=== PATIENT | male | born 1965 | race American Indian/Alaskan Native ===

== ENCOUNTER 2018-03-12 09:41 | Observation (INO) | payer BC ==
[~2018-03-12] VITALS: Ht 167.6 cm; Wt 83.5 kg
[~2018-03-12 09:41] MED LIST: BENAML20/5; BENAML20/5 PO; DICL.1SO OD; ESCI10; FAMO20 PO; HYDACE10B PO; IBUP800 PO; Lotrel 10-40 M1 EACH PO; METF500; METF500 PO; METO100ER; METO25ER; NORVASC; Nitrostat0.4 MG SL; Norco 5-325 Ta1 EACH PO; OFLO.3OPSO OP; TRAM50 PO; TRIHYD5075 PO
[2018-03-12 10:20] LABS: BASOPHILS ABSOLUTE AUTO 0.08 K/mm3 (0.00-0.23); BASOPHILS PERCENT AUTO 1 % (0-2); EOSINOPHILS ABSOLUTE AUTO 0.18 K/mm3 (0.00-0.68); EOSINOPHILS PERCENT AUTO 1 % (0-6); Hematocrit 53.4 % (37.0-53.0); Hemoglobin 17.5 g/dL (13.5-17.5); IMMATURE GRAN ABSOLUTE AUTO 0.05 K/mm3 (0.00-0.10); IMMATURE GRAN PERCENT AUTO 0 % (0-1); LYMPHOCYTES ABSOLUTE AUTO 2.13 K/mm3 (0.84-5.20); LYMPHOCYTES PERCENT AUTO 14 % (21-46); MONOCYTES ABSOLUTE AUTO 0.97 K/mm3 (0.16-1.47); MONOCYTES PERCENT AUTO 6 % (4-13); Mean Corpuscular HGB 29.9 pg (26.0-34.0); Mean Corpuscular HGB Conc 32.8 g/dL (31.5-36.5); Mean Corpuscular Volume 91 fL (80-100); Mean Platelet Volume 9.3 fL (9.1-12.4); NEUTROPHILS ABSOLUTE AUTO 12.42 K/mm3 (1.96-9.15); NEUTROPHILS PERCENT AUTO 79 % (41-73); Platelet Count 343 K/mm3 (150-400); RDW Coefficient Variation 15.6 % (11.7-14.2); RDW Standard Deviation 52.3 fL (35.1-46.3); Red Blood Cell Count 5.86 M/mm3 (4.30-5.90); White Blood Cell Count 15.83 K/mm3 (4.00-11.30)
[2018-03-12 10:38] LABS: Alanine Aminotransfer (ALT/SGP 41 U/L (12-78); Albumin/Globulin Ratio 0.9 (0.8-1.8); Alk Phos 73 U/L (50-136); Anion Gap 8 mmol/L (6-16); Aspartate Aminotrans (AST/SGOT 27 U/L (12-37); Bilirubin, Total 0.4 mg/dL (0.1-1.0); Blood Urea Nitrogen 23 mg/dL (8-24); Bun/Creatinine Ratio 21.7 (12.0-20.0); CO2, Blood 30 mmol/L (21-32); Calcium, Blood 9.7 mg/dL (8.5-10.1); Chloride, Blood 101 mmol/L (98-108); Creatinine, Blood 1.06 mg/dL (0.60-1.20); Globulin, Blood 4.6 g/dL (2.2-4.0); Glomerular Filtration Rate >60 (60-); Glucose, Blood 167 mg/dL (70-99); Potassium, Blood 3.8 mmol/L (3.5-5.5); Sodium, Blood 139 mmol/L (136-145); Total Protein, Blood 8.6 g/dL (6.4-8.2)
[2018-03-13 05:14] LABS: BASOPHILS PERCENT AUTO 1 % (0-2); EOSINOPHILS ABSOLUTE AUTO 0.53 K/mm3 (0.00-0.68); EOSINOPHILS PERCENT AUTO 3 % (0-6); Hematocrit 48.4 % (37.0-53.0); Hemoglobin 15.5 g/dL (13.5-17.5); IMMATURE GRAN ABSOLUTE AUTO 0.07 K/mm3 (0.00-0.10); IMMATURE GRAN PERCENT AUTO 0 % (0-1); LYMPHOCYTES ABSOLUTE AUTO 3.24 K/mm3 (0.84-5.20); LYMPHOCYTES PERCENT AUTO 18 % (21-46); MONOCYTES ABSOLUTE AUTO 1.91 K/mm3 (0.16-1.47); MONOCYTES PERCENT AUTO 11 % (4-13); Mean Corpuscular HGB 29.4 pg (26.0-34.0); Mean Corpuscular Volume 92 fL (80-100); NEUTROPHILS ABSOLUTE AUTO 12.28 K/mm3 (1.96-9.15); NEUTROPHILS PERCENT AUTO 68 % (41-73); Platelet Count 299 K/mm3 (150-400); RDW Coefficient Variation 16.1 % (11.7-14.2); RDW Standard Deviation 53.9 fL (35.1-46.3); Red Blood Cell Count 5.28 M/mm3 (4.30-5.90); White Blood Cell Count 18.13 K/mm3 (4.00-11.30)
[2018-03-13 05:36] LABS: Alanine Aminotransfer (ALT/SGP 32 U/L (12-78); Albumin, Blood 3.2 g/dL (3.4-5.0); Albumin/Globulin Ratio 0.8 (0.8-1.8); Alk Phos 60 U/L (50-136); Anion Gap 8 mmol/L (6-16); Aspartate Aminotrans (AST/SGOT 21 U/L (12-37); Bilirubin, Total 0.6 mg/dL (0.1-1.0); Blood Urea Nitrogen 16 mg/dL (8-24); Bun/Creatinine Ratio 17.2 (12.0-20.0); CO2, Blood 24 mmol/L (21-32); Calcium, Blood 8.2 mg/dL (8.5-10.1); Chloride, Blood 111 mmol/L (98-108); Creatinine, Blood 0.93 mg/dL (0.60-1.20); Globulin, Blood 3.8 g/dL (2.2-4.0); Glomerular Filtration Rate >60 (60-); Glucose, Blood 105 mg/dL (70-99); Sodium, Blood 143 mmol/L (136-145)
== END 2018-03-13 15:35 | disposition home or self-care (01) ==
LOC: ER 09:41 → MEDS 09:42 → ER 13:30 → MEDS 13:30
PROVIDERS: Emergency Medicine; Hospitalist
DX: K85.90 Acute pancreatitis without necrosis or infection, unspecified (principal); I10 Essential (primary) hypertension; E11.9 Type 2 diabetes mellitus without complications; F17.210 Nicotine dependence, cigarettes, uncomplicated; D72.829 Elevated white blood cell count, unspecified; E78.5 Hyperlipidemia, unspecified; R11.2 Nausea with vomiting, unspecified; Z79.84 Long term (current) use of oral hypoglycemic drugs
CPT/HCPCS: 36415; 74181; 76705; 80053; 82947; 83690; 85025; 96361; 96374; 96375; 96376; 99285; C9113; G0378; J1170; J2405; J3010; J7030

== ENCOUNTER → 2018-11-24 | Outpatient (CLI) | payer BC ==
[2018-11-24 13:51] LABS: Triiodothyronine, Free 3.06 pg/mL (2.18-3.98)
== END | disposition home or self-care (01) ==
LOC: LAB 11:37 → LAB SHORT 11:37
PROVIDERS: Hospitalist
DX: Z12.5 Encounter for screening for malignant neoplasm of prostate (principal); R68.89 Other general symptoms and signs
CPT/HCPCS: 84439; 84481; G0103

== ENCOUNTER 2019-03-23 01:41 | Inpatient (IN) | payer BC ==
[~2019-03-23] VITALS: Ht 167.6 cm; Wt 78.2 kg
[2019-03-23 02:04] LABS: BASOPHILS ABSOLUTE AUTO 0.12 K/mm3 (0.00-0.23); BASOPHILS PERCENT AUTO 1 % (0-2); EOSINOPHILS ABSOLUTE AUTO 0.54 K/mm3 (0.00-0.68); EOSINOPHILS PERCENT AUTO 3 % (0-6); Hematocrit 42.3 % (37.0-53.0); Hemoglobin 13.3 g/dL (13.5-17.5); IMMATURE GRAN ABSOLUTE AUTO 0.11 K/mm3 (0.00-0.10); IMMATURE GRAN PERCENT AUTO 1 % (0-1); LYMPHOCYTES ABSOLUTE AUTO 3.27 K/mm3 (0.84-5.20); LYMPHOCYTES PERCENT AUTO 15 % (21-46); MONOCYTES ABSOLUTE AUTO 1.42 K/mm3 (0.16-1.47); MONOCYTES PERCENT AUTO 7 % (4-13); Mean Corpuscular HGB 29.2 pg (26.0-34.0); Mean Corpuscular HGB Conc 31.4 g/dL (31.5-36.5); Mean Corpuscular Volume 93 fL (80-100); Mean Platelet Volume 9.3 fL (9.1-12.4); NEUTROPHILS ABSOLUTE AUTO 15.92 K/mm3 (1.96-9.15); NEUTROPHILS PERCENT AUTO 75 % (41-73); Platelet Count 348 K/mm3 (150-400); RDW Coefficient Variation 15.7 % (11.7-14.2); RDW Standard Deviation 53.6 fL (35.1-46.3); Red Blood Cell Count 4.55 M/mm3 (4.30-5.90); White Blood Cell Count 21.38 K/mm3 (4.00-11.30)
[2019-03-23 02:18] LABS: International Normalized Ratio 1.08; Prothrombin Time Results 11.4 Sec (9.7-11.5)
[2019-03-23 02:24] LABS: Alanine Aminotransfer (ALT/SGP 24 U/L (12-78); Albumin, Blood 3.7 g/dL (3.4-5.0); Albumin/Globulin Ratio 0.9 (0.8-1.8); Alk Phos 74 U/L (50-136); Anion Gap 6 mmol/L (6-16); Aspartate Aminotrans (AST/SGOT 23 U/L (12-37); Bilirubin, Total 0.3 mg/dL (0.1-1.0); Blood Urea Nitrogen 12 mg/dL (8-24); Bun/Creatinine Ratio 10.3 (12.0-20.0); CO2, Blood 27 mmol/L (21-32); Calcium, Blood 8.2 mg/dL (8.5-10.1); Chloride, Blood 104 mmol/L (98-108); Creatinine, Blood 1.17 mg/dL (0.60-1.20); Globulin, Blood 4.1 g/dL (2.2-4.0); Glomerular Filtration Rate >60 (60-); Glucose, Blood 163 mg/dL (70-99); Potassium, Blood 4.4 mmol/L (3.5-5.5); Sodium, Blood 137 mmol/L (136-145); Total Protein, Blood 7.8 g/dL (6.4-8.2); Troponin I 0.252 ng/mL (0.000-0.040)
--- NOTE | 2019-03-23 03:45 | NUR ---
ADMIT PT ARRIVED TO ICU 12 AT 0325 FROM SPORTS ANNOUNCER. PT IS DROWSEY, BUT AROUSES TO VERBAL STIMULI. PT IS ALERT AND ORIENTED. PT DENIES CHEST PAIN OR DISCOMFORT AT THIS TIME. PT ON 2L O2 NC. VITAL SIGNS STABLE. PT WITH RIGHT FEMORAL ACCESS SITE WITH DRESSING C/D/I, NO BLEEDING OR HEMATOMA, SITE IS SOFT. WILL CONTINUE TO MONITOR.
--- NOTE | 2019-03-23 05:59 | NUR ---
GROIN SITE PT NOTED TO HAVE SMALL AMOUNT OF OOZING FROM RIGHT FEMORAL ACCESS SITE. SITE IS SOFT, NO HEMATOMA PRESENT. PRESSURE HELD FOR 5 MINS. 4X4 GAUZE PACKED BELOW SITE. OOZING HAS SUBSIDED AT THIS TIME. PT CONTINUES TO DENY PAIN OR DISCOMFORT. VSS. WILL CONTINUE TO MONITOR.
[2019-03-23 09:22] LABS: U Cannabinoids Screen DETECTED; U Opiates Screen DETECTED
[2019-03-23 09:23] LABS: U Amphetamine Screen Not Detected; U Barbituate Screen Not Detected; U Benzodiazapine Screen Not Detected; U Buprenorphine Screen Not Detected; U Cocaine Screen Not Detected; U Methadone Screen Not Detected; U Methamphetamine Screen Not Detected; U Oxycodone Screen Not Detected; U Phencyclidine Screen Not Detected; U Propoxyphene Screen Not Detected
[2019-03-23 10:41] LABS: BASOPHILS ABSOLUTE AUTO 0.06 K/mm3 (0.00-0.23); BASOPHILS PERCENT AUTO 0 % (0-2); EOSINOPHILS ABSOLUTE AUTO 0.22 K/mm3 (0.00-0.68); EOSINOPHILS PERCENT AUTO 1 % (0-6); Hematocrit 40.9 % (37.0-53.0); Hemoglobin 12.9 g/dL (13.5-17.5); IMMATURE GRAN ABSOLUTE AUTO 0.04 K/mm3 (0.00-0.10); IMMATURE GRAN PERCENT AUTO 0 % (0-1); LYMPHOCYTES ABSOLUTE AUTO 3.27 K/mm3 (0.84-5.20); LYMPHOCYTES PERCENT AUTO 19 % (21-46); MONOCYTES ABSOLUTE AUTO 1.58 K/mm3 (0.16-1.47); MONOCYTES PERCENT AUTO 9 % (4-13); Mean Corpuscular HGB 28.9 pg (26.0-34.0); Mean Corpuscular HGB Conc 31.5 g/dL (31.5-36.5); Mean Corpuscular Volume 92 fL (80-100); NEUTROPHILS ABSOLUTE AUTO 11.68 K/mm3 (1.96-9.15); NEUTROPHILS PERCENT AUTO 69 % (41-73); Platelet Count 299 K/mm3 (150-400); RDW Coefficient Variation 15.7 % (11.7-14.2); RDW Standard Deviation 53.1 fL (35.1-46.3); Red Blood Cell Count 4.46 M/mm3 (4.30-5.90); White Blood Cell Count 16.85 K/mm3 (4.00-11.30)
[2019-03-23 10:59] LABS: Alanine Aminotransfer (ALT/SGP 60 U/L (12-78); Albumin, Blood 3.3 g/dL (3.4-5.0); Albumin/Globulin Ratio 0.9 (0.8-1.8); Alk Phos 69 U/L (50-136); Anion Gap 7 mmol/L (6-16); Aspartate Aminotrans (AST/SGOT 358 U/L (12-37); Bilirubin, Total 0.7 mg/dL (0.1-1.0); Blood Urea Nitrogen 11 mg/dL (8-24); Bun/Creatinine Ratio 13.5 (12.0-20.0); CO2, Blood 23 mmol/L (21-32); Calcium, Blood 8.5 mg/dL (8.5-10.1); Chloride, Blood 110 mmol/L (98-108); Creatinine, Blood 0.82 mg/dL (0.60-1.20); Globulin, Blood 3.6 g/dL (2.2-4.0); Glomerular Filtration Rate >60 (60-); Glucose, Blood 97 mg/dL (70-99); Potassium, Blood 4.1 mmol/L (3.5-5.5); Sodium, Blood 140 mmol/L (136-145); Total Protein, Blood 6.9 g/dL (6.4-8.2)
--- NOTE | 2019-03-23 11:17 | NUR ---
BEGINNING OF SHIFT AND TRANSFER OF CARE Assumed care of pt at 0700. Bedside report recieved from Cayden MONET. Pt on 2 LPM NC at time of report. Right femoral access site covered with tegaderm that had small amount of dried red drainage. Pt supine in bed. Pt frustrated that he had to pee but is unable to pee while laying flat. Pt attempted to use urinal for 30 minutes. Pt assisted to stand and side of bed to void. Pt successful in voiding. Leaking from right femoral site started. Dressing removed. Site cleaned with chlorhexidine. Davide patch applied. Pt had a 28-beat run of V-Tach while this RN at bedside, assessing groin site. Pt asymptomatic, speaking with this RN at time of event. Pt had one additional run of nonsustained V-Tach while this RN not in room. Pt states he did not feel chest pain, palpitations, or additional shorntess of breath during this event. Pt reported shortness of breath. HOB elevated. Pt stated this provided some relief. Dr Garcia in to see patient. Verbal orders recieved from provider. Provider aware of shorntess of breath. IV fluids stopped. IV lasix administered. OK to be transferred to PCU. EKG obtained. Results of EKG and most recent troponin given to Dr Garcia. Pt transferred to room PCU 12 via wheelchair. Telephone report given to Olvin MONET. Groin site assessed at bedside with Olvin MONET. After pt transfer to PCU, this RN recieved telephone order to place hospitalist consult if LFTs or lipase are elevated. Order placed. Update given to Olvin MONET.
--- NOTE | 2019-03-23 11:55 | NUR ---
NOTIFIED DR. VERN GARZON REQUESTING CONSULT FOR THE PT. NOTIFIED DR. PORRAS PT HAD STENT PLACED AND ACCESS SITE IS ON THE R SIDE. NOTIFIED DR. PORRAS PT HAS HEMATOMA THAT IS HARD AND PAINFUL ON L SIDE. DR. PORRAS SAID HE WILL BE UP TO SEE PT. NO NEW ORDERS AT THIS TIME.
--- NOTE | 2019-03-23 17:07 | NUR ---
SHIFT SUMMARY- PT ICU TRANSFER THIS AFTERNOON. PT HAD STENT PLACED THIS AM. RIGHT FEMORAL ACCESS SITE HAS NIR PATCH IN PLACE. DRESSING C/D/I. PT HAS HEMATOMA ON L HIP. PT REPORTS HEMATOMA IS PAINFUL. MEDS GIVEN PER EMAR. HEMATOMA FIRM/TENDER. HEMATOMA 8CM LONG AND 4CM WIDE. HEMATOMA OUTLINED WITH MARKER. DR. PORRAS NOTIFIED. PT TO BE NPO AFTER MIDNIGHT TO HAVE ABD ULTRASOUND IN THE AM. PT DENIES CHEST PAIN/PRESSURE THIS SHIFT. DENIES N/V. REPORTS SOB. 99% ON RA. INDEPENDENT IN THE ROOM. NO OTHER SIGNIFICANT CHANGES THIS SHIFT.
--- NOTE | 2019-03-23 20:12 | NUR ---
DAY NURSE BRADEN STATES RECEIVING CRITICAL TROPONIN OF 101.00. NURSE STATES NOT CQALLING DR TO NOTIFY DUE TO DR WILSON KNOWING RESULT OF 99 AND THIS VALUE BEING EXPECTED POST CATHETERIZATION. CHARGE NURSE NEGAR CONFIRMED THIS.
--- NOTE | 2019-03-24 01:42 | NUR ---
PT HAS BEEN RESTING OFF AND ON T/O SHIFT. PT CURRENTLY LAYING IN BED, LIGHTS OFF. CHEST RISE EQUAL, APPEARS UNLABORED. PT HAS TV GOING. DOOR CLOSED PER PATIENT REQUEST. CALL LIGHT WITHIN REACH OF PT.
[2019-03-24 04:23] LABS: Amylase, Blood 70 U/L (25-115)
--- NOTE | 2019-03-24 06:40 | NUR ---
END OF SHIFT SUMMARY ASSUMED CARE OF PT @1900. PT ALERT AND OREINTED TALKING WITH STAFF APPROPRIATELY. UP IN ROOM WALKING AROUND. PT REEDUCATED ON PRECAUTIONS WITH FEMORAL SITE ACCESS, PT VERBALIZES UNDERSTANDING AND HAS SHOWN TO BE CAUTIOUS WITH MOVEMENT REGARDING THE SITE. SITE DRESSING INTACT, NO NEW BLEEDING NOTED. SITE DOES NOT PRESENT WITH REDNESS, HEAT, OR SEVERE SWELLING. BUTTOCK UNDER AREA FREE OF BRUISING. LEFT HIP NOTED TOP HAVE LARGE BRUISE, PT STATES UNRELATED TO CATHETERIZATION. HAS SHOWN IMPROVEMENT THIS SHIFT, DECREASED SWELLING/TENDERNESS. HEARET SOUNDS HAVE BEEN UNREMARKABLE TO AUSCULTATION. PT HAS BEEN NPO SINCE MIDNIGHT FOR ULTRASOUND. TROPONIN 101 BEFORE ASUMINGN CARE OF PT, SEE PREV NOTE. VSS T/O SHIFT. PT HAS RESTED ON AND OFF T/O NIGHT. WILL CONTINUEN TO MONITOR UNTIL SHIFT CHANGE.
--- NOTE | 2019-03-24 08:51 | NUR ---
The pt told me this morning that "As soon as my ultrasound is over, I'm getting out of here" I explained that we would need to wait for discharge orders, pending the results of the ultrasound as well, but he seems quite intent on leaving the hospital today. Presently he is getting the ultrasound in the room, and I have also noted orders from the hospitalist for a surgical consultation, which was called in about 10 minutes ago to the answering service for Dr. Prieto.
--- NOTE | 2019-03-24 08:53 | NUR ---
Noted order for metformin which was given yesterday evening. This is unusual given the PCI which was done by Dr. Garcia yesterday. Normally post angiogram, metformin is withheld for 48-72 hours. Will clarify this with the attending physician this morning. Meanwhile, it is being held.
[2019-03-24 09:48] LABS: BASOPHILS ABSOLUTE AUTO 0.05 K/mm3 (0.00-0.23); BASOPHILS PERCENT AUTO 0 % (0-2); EOSINOPHILS PERCENT AUTO 1 % (0-6); Hematocrit 41.6 % (37.0-53.0); Hemoglobin 12.8 g/dL (13.5-17.5); IMMATURE GRAN ABSOLUTE AUTO 0.05 K/mm3 (0.00-0.10); IMMATURE GRAN PERCENT AUTO 0 % (0-1); LYMPHOCYTES PERCENT AUTO 24 % (21-46); MONOCYTES ABSOLUTE AUTO 1.55 K/mm3 (0.16-1.47); MONOCYTES PERCENT AUTO 11 % (4-13); Mean Corpuscular HGB Conc 30.8 g/dL (31.5-36.5); Mean Corpuscular Volume 94 fL (80-100); Mean Platelet Volume 9.7 fL (9.1-12.4); NEUTROPHILS ABSOLUTE AUTO 9.04 K/mm3 (1.96-9.15); NEUTROPHILS PERCENT AUTO 63 % (41-73); Platelet Count 327 K/mm3 (150-400); RDW Coefficient Variation 15.9 % (11.7-14.2); RDW Standard Deviation 55.4 fL (35.1-46.3); Red Blood Cell Count 4.42 M/mm3 (4.30-5.90); White Blood Cell Count 14.29 K/mm3 (4.00-11.30)
--- NOTE | 2019-03-24 10:24 | NUR ---
ECHOCARDIOGRAM COMPLETE
--- NOTE | 2019-03-24 10:30 | NUR ---
Spoke with Dr. Esteban regarding metformin. He states that the pt is fine to resume his metformin once he is discharged today. The pt also expressed to me some concern about taking Atorvastatin because years ago he had taken it and had some muscle aches and generalized discomfort from taking it. STates that he decided at the time to stop taking it and instead lost weight to reduce his cholesterol level. I spoke with the pt about lifestyle modifications such as quitting smoking and a vegan diet, but emphasized to him that he needs to discuss the benefits vs. side effects of his medications with his physician.
[2019-03-24] MEDS ORDERED: Acetaminophen325 M1 PO (14:09)
[2019-03-24] MEDS ORDERED: Aspir 8181 MG PO (14:10)
[2019-03-24] MEDS ORDERED: CLOP75 PO (14:11)
[2019-03-24] MEDS ORDERED: ATOR80 PO (14:11)
[2019-03-24] MEDS ORDERED: ONDA4ODT MM (14:12)
[2019-03-24] MEDS ORDERED: NICO21TP TOP (14:12)
[2019-03-24] MEDS ORDERED: Lopressor 25 mg25 MG PO (14:13)
== END 2019-03-24 15:33 | disposition home or self-care (01) | DRG 249 ==
LOC: ER 01:41 → ICUW 02:14 → PCU 02:23 → ICUW 03:32 → PCU 11:01
PROVIDERS: Emergency Medicine; Family Medicine; Surgery; ADMIT Internal Medicine Interventional Cardiology
PROC: 4A023N7 Measurement of Cardiac Sampling and Pressure, Left Heart, Percutaneous Approach (ICD-10-PCS; principal; 2019-03-23)
PROC: 02703DZ Dilation of Coronary Artery, One Artery with Intraluminal Device, Percutaneous Approach (ICD-10-PCS; 2019-03-23)
PROC: B210YZZ Fluoroscopy of Single Coronary Artery using Other Contrast (ICD-10-PCS; 2019-03-23)
DX: I21.3 ST elevation (STEMI) myocardial infarction of unspecified site (principal); I10 Essential (primary) hypertension; E11.9 Type 2 diabetes mellitus without complications; S30.1XXA Contusion of abdominal wall, initial encounter; S70.00XA Contusion of unspecified hip, initial encounter; F17.210 Nicotine dependence, cigarettes, uncomplicated; E78.5 Hyperlipidemia, unspecified; R07.1 Chest pain on breathing; Z79.4 Long term (current) use of insulin; Z79.84 Long term (current) use of oral hypoglycemic drugs; I21.19 ST elevation (STEMI) myocardial infarction involving other coronary artery of inferior wall
CPT/HCPCS: 36415; 76700; 80053; 82150; 82947; 83036; 83690; 84484; 85025; 85347; 85610; 92941; 92978; 93005; 93010; 93306; 93458; 96361; 96374; 96375; 99152; 99153; 99285-25; C1753; C1760; C1769; C1876; C1887; J0461; J1644; J1650; J1940; J2250; J2270; J3010; J7030; Q9967

== ENCOUNTER 2019-07-18 07:25 | Day surgery (SDC) | payer OTHER ==
[~2019-07-18] VITALS: Ht 167.6 cm; Wt 75.0 kg
[~2019-07-18 07:25] MED LIST changes: +ATOR80 PO; +Acetaminophen325 M1 PO; +Aspir 8181 MG PO; +CLOP75 PO; +Lopressor 25 mg25 MG PO; +NICO21TP TOP; +ONDA4ODT MM
[2019-07-18] MEDS ORDERED: PRAM.5 PO (08:21)
--- NOTE | 2019-07-18 13:50 | NUR ---
PT SHEATH PULLED AT 1319, NIR IN PLACE. HEMOSTASIS OBTAINED TO R FEMORAL ARTERY. VSS. NADN. CALL LIGHT WITHIN REACH. PT DENIES NEEDS AT THIS TIME. CALL LIGHT WITHIN REACH.
--- NOTE | 2019-07-18 14:29 | NUR ---
SPOKE WITH DR PINEDO REGARDING CONTINUATION OF CARE. WILL PUT EXTENDED RECOVERY ORDERS IN PK. VSS. PT RESTING COMFORTABLY. R FEM SITE REMAINS CLEAR.
--- NOTE | 2019-07-18 16:41 | NUR ---
Received the pt from the heart center, slid over from stretcher to the bed. Pt is visibly angry, giving very short one-word answers, and states with obscenities that he blames Dr. Garcia for the type of stent which he place back in March. The pt declined to have his toscano catheter removed at this time, as he states he will not be able to void until he is able to stand up. Vital signs are stable, and right groin site is without bleeding, bruising, swelling, hematoma, and dital pulses are strong and equal bilateral upper and lower extremities. Fingers and toes are pink, warm, dry, with brisk capillary refill. No peripheral edema noted. Lung sounds are diminished auscultated anteriorly, without crackles or wheezes; heart sounds regular rate and rhythm, also somewhat diminished. The pt stated he does not want me to bring him anything to eat or drink at this time. Call light was provided to him at the bedside.
--- NOTE | 2019-07-18 17:36 | NUR ---
Pt pulled line assigner off, and is refusing to wear it. vital signs stable, Groin site right side is unchanged from prior assessment. Pt denies any pain. STates he was too cold. At this time, the room feels warm, and the pt has been provided multiple blankets, including warm blankets from the warmer. As I came into the room, the pt was in the process of taking off his telemetry patches off and removing the wires from his chest. The telemetry box was not attached. I asked the pt where it was and he said he had no idea. He gave multiple explanations, such as 'the girl with the blankets took it" or "maybe it's under my computer" or "is it in my bag? Maybe I put it in my bag". The bag is on the other side of the room, and the pt has been instructed not to get out of bed until 6 pm, and not without assistance the first time. Tele box was found across the room, on the bench seat. Pt acted surprised that it was there.
--- NOTE | 2019-07-18 18:39 | NUR ---
1800 Urinary catheter was discontinued, as the pt would be able to stand slowly up. The pt angrily asked if I was going to take the IV out as well, and I stated that it would be discontinued at the time of discharge. He said angrily, "Well you're not going to be putting anything in it are, you?" I explained that in case of emergency, it would be used and that for his safety it would be left in until he is discharged per the doctor's orders at 8 pm. Lukas was dc'd, urine noted clear and yellow. Immediately the pt jumped out of bed, began gathering his belongings, and getting dressed. I asked if he had a ride and he said, "Eventually". As the pt appeared to be readying himself to leave, Deepthi Bee RN removed the IV. At 1830 it was noted that the patient had left the room. Dr. Carvalho was called to notify him that the patient had left. He stated that he was not surprised at the behaviour and attitude of the patient.
--- NOTE | 2019-07-18 19:10 | NUR ---
Discharge packet provided in the room to give to the patient was found left in the room.
== END 2019-07-18 16:30 | disposition home or self-care (01) ==
LOC: MHTC 07:25 → PCU 16:13 → MHTC 16:30
DX: I25.111 Atherosclerotic heart disease of native coronary artery with angina pectoris with documented spasm (principal); I25.84 Coronary atherosclerosis due to calcified coronary lesion; I25.2 Old myocardial infarction; I10 Essential (primary) hypertension; E78.5 Hyperlipidemia, unspecified; E11.9 Type 2 diabetes mellitus without complications; E78.00 Pure hypercholesterolemia, unspecified; Z79.891 Long term (current) use of opiate analgesic; Z79.899 Other long term (current) drug therapy; Z87.891 Personal history of nicotine dependence; Z95.5 Presence of coronary angioplasty implant and graft
CPT/HCPCS: 82947; 85347; 92978; 92979; 93454; 93571; 93572; 99152; 99153; C1753; C1769; C1887; C1894; J0153; J1644; J2250; J3010; J7030; J7040; Q9967

== ENCOUNTER → 2019-09-26 | Outpatient (CLI) | payer OTHER ==
[~2019-09-26] MED LIST changes: +PRAM.5 PO
[2019-09-26 19:24] LABS: BASOPHILS ABSOLUTE AUTO 0.11 K/mm3 (0.00-0.23); BASOPHILS PERCENT AUTO 1 % (0-2); EOSINOPHILS ABSOLUTE AUTO 0.83 K/mm3 (0.00-0.68); EOSINOPHILS PERCENT AUTO 6 % (0-6); Hemoglobin 11.8 g/dL (13.5-17.5); IMMATURE GRAN ABSOLUTE AUTO 0.05 K/mm3 (0.00-0.10); IMMATURE GRAN PERCENT AUTO 0 % (0-1); LYMPHOCYTES ABSOLUTE AUTO 3.27 K/mm3 (0.84-5.20); LYMPHOCYTES PERCENT AUTO 22 % (21-46); MONOCYTES ABSOLUTE AUTO 1.69 K/mm3 (0.16-1.47); MONOCYTES PERCENT AUTO 11 % (4-13); Mean Corpuscular HGB 28.6 pg (26.0-34.0); Mean Corpuscular HGB Conc 30.3 g/dL (31.5-36.5); Mean Corpuscular Volume 95 fL (80-100); Mean Platelet Volume 9.4 fL (9.1-12.4); NEUTROPHILS ABSOLUTE AUTO 9.03 K/mm3 (1.96-9.15); NEUTROPHILS PERCENT AUTO 60 % (41-73); Platelet Count 368 K/mm3 (150-400); RDW Coefficient Variation 14.8 % (11.7-14.2); RDW Standard Deviation 51.9 fL (35.1-46.3); Red Blood Cell Count 4.12 M/mm3 (4.30-5.90); White Blood Cell Count 14.98 K/mm3 (4.00-11.30)
[2019-09-26 19:43] LABS: Alanine Aminotransfer (ALT/SGP 40 U/L (12-78); Albumin, Blood 3.6 g/dL (3.4-5.0); Albumin/Globulin Ratio 0.9 (0.8-1.8); Alk Phos 99 U/L (50-136); Anion Gap 8 mmol/L (6-16); Aspartate Aminotrans (AST/SGOT 24 U/L (12-37); Bilirubin, Total 0.4 mg/dL (0.1-1.0); Blood Urea Nitrogen 13 mg/dL (8-24); CHOL/HDL RATIO 3.1; CO2, Blood 25 mmol/L (21-32); Calcium, Blood 8.7 mg/dL (8.5-10.1); Chloride, Blood 104 mmol/L (98-108); Cholesterol 143 mg/dL (50-200); Globulin, Blood 4.1 g/dL (2.2-4.0); Glomerular Filtration Rate >60 (60-); Glucose, Blood 111 mg/dL (70-99); HDL Cholesterol 46 mg/dL (>39); LDL/HDL RATIO 1.6; Low Density Lipoprotein Chol 73 mg/dL (0-110); Potassium, Blood 4.5 mmol/L (3.5-5.5); Sodium, Blood 137 mmol/L (136-145); Total Protein, Blood 7.7 g/dL (6.4-8.2); Triglycerides 119 mg/dL (30-160); Very Low Density Lipoprot Chol 23 mg/dL (6-32)
== END | disposition home or self-care (01) ==
LOC: LAB SHORT 15:14 → LAB 15:14
PROVIDERS: Hospitalist
DX: I25.10 Atherosclerotic heart disease of native coronary artery without angina pectoris (principal); I10 Essential (primary) hypertension; E78.5 Hyperlipidemia, unspecified; E11.9 Type 2 diabetes mellitus without complications
CPT/HCPCS: 80053; 80061; 83036; 85025

== ENCOUNTER → 2019-09-27 | Outpatient (CLI) | payer OTHER | END | disposition home or self-care (01) | LOC: LAB 14:51 → LAB SHORT 14:51 | DX: E11.9 Type 2 diabetes mellitus without complications (principal) | CPT/HCPCS: 82043 ==

== ENCOUNTER 2019-11-07 15:36 | Day surgery (SDC) | payer OTHER ==
[2019-11-07] MEDS ORDERED: ATOR10 PO (15:42)
[2019-11-07] MEDS ORDERED: Augmentin 875-1 EACH PO (15:43)
[2019-11-07] MEDS ORDERED: POTA10T PO (15:43)
[2019-11-07] MEDS ORDERED: Flovent 110 MCG12 GM INH (15:44)
[2019-11-07] MEDS ORDERED: NEBI10 PO (15:45)
[2019-11-07] MEDS ORDERED: FURO20 PO (15:45)
[2019-11-07] MEDS ORDERED: LOSA50 PO (15:45)
[2019-11-07] MEDS ORDERED: METO5 PO (15:46)
== END 2019-11-07 22:45 | disposition home or self-care (01) ==
LOC: ATC 15:36
DX: I25.799 Atherosclerosis of other coronary artery bypass graft(s) with unspecified angina pectoris (principal); I25.2 Old myocardial infarction; I10 Essential (primary) hypertension; E78.5 Hyperlipidemia, unspecified; E11.9 Type 2 diabetes mellitus without complications; F41.9 Anxiety disorder, unspecified; J45.909 Unspecified asthma, uncomplicated; R11.0 Nausea; F41.1 Generalized anxiety disorder; E66.9 Obesity, unspecified; Z68.28 Body mass index [BMI] 28.0-28.9, adult; Z95.1 Presence of aortocoronary bypass graft; Z87.891 Personal history of nicotine dependence; Z79.82 Long term (current) use of aspirin; Z79.84 Long term (current) use of oral hypoglycemic drugs; Z79.02 Long term (current) use of antithrombotics/antiplatelets; Z79.899 Other long term (current) drug therapy; Y83.1 Surgical operation with implant of artificial internal device as the cause of abnormal reaction of the patient, or of later complication, without mention of misadventure at the time of the procedure
CPT/HCPCS: 96365; 96366; J3480; J7030

== ENCOUNTER → 2021-01-27 | Outpatient (CLI) | payer OTHER ==
[~2021-01-27] MED LIST changes: +ATOR10 PO; +Augmentin 875-1 EACH PO; +FURO20 PO; +Flovent 110 MCG12 GM INH; +LOSA50 PO; +METO5 PO; +NEBI10 PO; +POTA10T PO
== END | disposition home or self-care (01) ==
LOC: LAB 14:12 → LAB SHORT 14:12
DX: E11.9 Type 2 diabetes mellitus without complications (principal)
CPT/HCPCS: 83036

== ENCOUNTER → 2021-08-27 | Outpatient (CLI) | payer OTHER | END | disposition home or self-care (01) | LOC: LAB SHORT 10:45 → LAB 10:45 | DX: E11.59 Type 2 diabetes mellitus with other circulatory complications (principal) | CPT/HCPCS: 82043 ==

== ENCOUNTER → 2022-03-31 | Outpatient (CLI) | payer MEDICARE, OTHER | END | disposition home or self-care (01) | LOC: LAB SHORT 14:55 | DX: E11.59 Type 2 diabetes mellitus with other circulatory complications (principal) | CPT/HCPCS: 83036 ==

== ENCOUNTER 2023-07-31 00:57 | Inpatient (IN) | payer MEDICARE, OTHER ==
[~2023-07-31] VITALS: Ht 167.6 cm; Wt 80.7 kg
[2023-07-31 03:10] LABS: BASOPHILS ABSOLUTE AUTO 0.02 K/mm3 (0.00-0.23); BASOPHILS PERCENT AUTO 0 % (0-2); EOSINOPHILS PERCENT AUTO 0 % (0-6); Hemoglobin 14.6 g/dL (13.5-17.5); IMMATURE GRAN PERCENT AUTO 1 % (0-1); LYMPHOCYTES ABSOLUTE AUTO 0.65 K/mm3 (0.84-5.20); LYMPHOCYTES PERCENT AUTO 4 % (21-46); MONOCYTES ABSOLUTE AUTO 1.62 K/mm3 (0.16-1.47); MONOCYTES PERCENT AUTO 10 % (4-13); Mean Corpuscular HGB 34.1 pg (26.0-34.0); Mean Corpuscular HGB Conc 34.8 g/dL (31.5-36.5); Mean Corpuscular Volume 98 fL (80-100); Mean Platelet Volume 10.4 fL (9.1-12.4); NEUTROPHILS ABSOLUTE AUTO 13.56 K/mm3 (1.96-9.15); NEUTROPHILS PERCENT AUTO 85 % (41-73); Platelet Count 216 K/mm3 (150-400); RDW Coefficient Variation 14.2 % (11.7-14.2); RDW Standard Deviation 51.1 fL (35.1-46.3); Red Blood Cell Count 4.28 M/mm3 (4.30-5.90); White Blood Cell Count 15.95 K/mm3 (4.00-11.30)
[2023-07-31 03:23] LABS: Albumin, Blood 2.5 g/dL (3.4-5.0); Albumin/Globulin Ratio 0.6 (0.8-1.8); Bilirubin, Total 0.4 mg/dL (0.1-1.0); Calcium, Blood 8.3 mg/dL (8.5-10.1); Creatinine, Blood 0.91 mg/dL (0.60-1.20); Globulin, Blood 4.2 g/dL (2.2-4.0); Potassium, Blood 3.7 mmol/L (3.5-5.5); Total Protein, Blood 6.7 g/dL (6.4-8.2)
[2023-07-31 03:38] LABS: Bicarbonate Venous 23.2 mmol/L (24.0-30.0); PCO2 Venous 36.6 mmHg (38-42); pH Blood Venous 7.42 (7.34-7.37)
[2023-07-31 04:12] LABS: Influenza A, PCR NEGATIVE (NEGATIVE); Influenza B, PCR NEGATIVE (NEGATIVE); Resp Syncytial Virus, PCR NEGATIVE (NEGATIVE); SARS-Cov-2 (COVID-19) PCR, MMC NEGATIVE (NEGATIVE)
[2023-07-31] MEDS ORDERED: TRAM50 PO (05:09)
[2023-07-31] MEDS ORDERED: TAMS.4ER PO (05:09)
[2023-07-31] MEDS ORDERED: BENAZEPRIL HCL40 M1 PO (05:10)
[2023-07-31] MEDS ORDERED: AMLO10 PO (05:10)
[2023-07-31] MEDS ORDERED: JARDIANCE10 MG PO (05:14)
[2023-07-31] MEDS ORDERED: BUSP5 PO (05:14)
[2023-07-31] MEDS ORDERED: ALBU8HFA2 INH (05:16)
[2023-07-31 05:36] VITALS: BP 150/87
[2023-07-31 07:21] VITALS: BP 118/68
--- NOTE | 2023-07-31 07:29 | NUR ---
ASSUMED CARE AND COMFORT OF THIS PATIENT AT 0700 TODAY. PATIENT IS BREATHING HEAVILY AND APPEARS EXHAUSTED. HIS LUNGS ARE WHEEZY AND COARSE ON LEFT AND RALES AND DIM ON THE RIGHT. HE IS DIAPHORETIC AND SHAKY. HE IS NOT FEVERISH AND ASKS FOR A BLANKET HE IS COLD. ONE IS PROVIDED AND RT BENOIT IS CALLED TO BEDSIDE FOR A BREATHING TREATMENT. PATIENT HAS MUCH DIFFICULTY HOLDING NEBULIZER. O2 SATS ARE 94% ON 8 LITERS. WAITING FOR SPUTUM SAMPLE TO SEND TO LAB FOR ANALYSIS. IF CONDITION WORSENS WILL CONTACT HOSPITALIST FOR FURTHER ORDERS.
[2023-07-31 09:10] LABS: Hematocrit 42.1 % (37.0-53.0); Hemoglobin 14.8 g/dL (13.5-17.5); Mean Corpuscular HGB 34.5 pg (26.0-34.0); Mean Corpuscular HGB Conc 35.2 g/dL (31.5-36.5); Mean Corpuscular Volume 98 fL (80-100); Mean Platelet Volume 9.7 fL (9.1-12.4); Platelet Count 190 K/mm3 (150-400); RDW Coefficient Variation 14.1 % (11.7-14.2); RDW Standard Deviation 51.2 fL (35.1-46.3); Red Blood Cell Count 4.29 M/mm3 (4.30-5.90); White Blood Cell Count 13.36 K/mm3 (4.00-11.30)
[2023-07-31 09:31] LABS: Albumin, Blood 2.5 g/dL (3.4-5.0); Albumin/Globulin Ratio 0.6 (0.8-1.8); Bilirubin, Total 0.5 mg/dL (0.1-1.0); Bun/Creatinine Ratio 22.9 (12.0-20.0); Calcium, Blood 8.2 mg/dL (8.5-10.1); Creatinine, Blood 0.92 mg/dL (0.60-1.20); Globulin, Blood 4.2 g/dL (2.2-4.0); Potassium, Blood 3.2 mmol/L (3.5-5.5); Total Protein, Blood 6.7 g/dL (6.4-8.2)
[2023-07-31 09:43] LABS: BASOPHILS PERCENT MAN 0 % (0-2); EOSINOPHILS PERCENT MAN 0 % (0-6); METAMYELOCYTE ABSOLUTE MAN 0.13 K/mm3 (0.00-0.00); METAMYELOCYTE PERCENT MAN 1 % (0-0); MONOCYTES PERCENT MAN 3 % (4-13); NEUTROPHILS ABSOLUTE MAN 12.82 K/mm3 (1.96-9.15); SEG NEUTROPHILS PERCENT MAN 96 % (41-73); TOTAL CELLS COUNTED 100
[2023-07-31 14:53] VITALS: BP 136/83
[2023-07-31 19:22] VITALS: BP 141/88
--- NOTE | 2023-08-01 03:56 | NUR ---
SHIFT SUMMARY NOC PT A/O X 4. PLEASANT AND COOPERATIVE WITH CARE. PT HAD C/O OF SOB AT BEGINNING OF SHIFT AND RT BREATHING TREATMENT ADMINSTERED. NO FURTHER C/O OF SOB SINCE. PT HAS BEEN ABLE TO TRANSFER WITH SBA FWW TO RESTROOM AND TO CHAIR WITH MINIMAL DYSPNEA. PT ON 6L/NC DOWN FROM 8L YESTERDAY MORNING. ON TELE RUNNING NSR @ 87 BPM.PT REPORTS FREQUENT DIARRHEA SINCE STARTING ABX REGIMEN AND IMMODIUM Q3H ORDER OBTAINED.. PT HAS HAD ADEQUETE URINE OUTPUT SINCE RECEIVING 1 OF 2 DOSES OF IV LASIX YESTERDAY MORNING. PT MOOD IS NOTICEABLE MORE POSITIVE AND OPTIMISTIC TONIGHT. PT HS BLOOD GLUCOSE 287 DOWN FROM 380'S DURING DAY SHIFT. PT IS CURRENTLY RESTING WITH BED IN LOWEST POSITION, AND CALL LIGHT WITHIN REACH.
[2023-08-01 04:49] LABS: Hematocrit 41.3 % (37.0-53.0); Hemoglobin 14.4 g/dL (13.5-17.5); Mean Corpuscular HGB Conc 34.9 g/dL (31.5-36.5); Mean Corpuscular Volume 98 fL (80-100); Mean Platelet Volume 10.1 fL (9.1-12.4); Platelet Count 243 K/mm3 (150-400); RDW Coefficient Variation 14.1 % (11.7-14.2); RDW Standard Deviation 50.7 fL (35.1-46.3); Red Blood Cell Count 4.23 M/mm3 (4.30-5.90); White Blood Cell Count 18.75 K/mm3 (4.00-11.30)
[2023-08-01 05:14] LABS: Albumin, Blood 2.3 g/dL (3.4-5.0); Anion Gap 9 mmol/L (6-16); Blood Urea Nitrogen 30 mg/dL (8-24); Bun/Creatinine Ratio 35.4 (12.0-20.0); CO2, Blood 24 mmol/L (21-32); Calcium, Blood 8.5 mg/dL (8.5-10.1); Chloride, Blood 101 mmol/L (98-108); Creatinine, Blood 0.85 mg/dL (0.60-1.20); Glomerular Filtration Rate 99 (60-); Glucose, Blood 252 mg/dL (70-99); Magnesium, Blood 2.4 mg/dL (1.6-2.4); Potassium, Blood 3.5 mmol/L (3.5-5.5); Sodium, Blood 134 mmol/L (136-145)
[2023-08-01 05:34] VITALS: BP 114/69
[2023-08-01 07:22] VITALS: BP 134/85
[2023-08-01 16:33] LABS: Vancomycin, Trough 10.9 ug/mL (5.0-10.0)
[2023-08-01 17:12] VITALS: BP 138/77
--- NOTE | 2023-08-01 18:54 | NUR ---
SHIFT SUMMARY: PT A&O X4. PT PLEASANT AND COOPERATIVE WITH CARE. PT FEELING BETTER TODAY. PT ON 6L 02 MAINTAINING SATS >92%. PT STILL HAVING DIARRHEA BUT IS GETTING BETTER WITH IMMODIUM. STOOL IS DARK. HOSPITALIST AWARE. WILL LOOK AT HGB WITH AM LABS. PT C/O ANXIETY ATTACK THIS AM AND STATING ATARAX WORKED WELL YESTERDAY FOR ANXIETY. ATARAX ORDERED Q8 PRN. PT HAS BEEN INDEPENDENT IN ROOM T/O SHIFT. IV ABX INFUSING W/O COMPLICATIONS. CALL LIGHT IN REACH. BED IN LOWEST POSITION. WILL CONTINUE TO MONITOR.
[2023-08-01 20:57] VITALS: BP 118/63
[2023-08-02 02:34] VITALS: BP 140/88
--- NOTE | 2023-08-02 04:30 | NUR ---
SUMMARY- PT A/O X4, OXYGEN 6L/NC, OCC WHEEZE. DUO NEB HELPFUL. ENC PEP THERAPY, PT COUGHING UP RICH PHLEGM. PT TOLERATING ACTIVITY TO THE CHAIR AT THE EDGE OF THE BED, HAS VERY LITTLE SOB. TOLERATING FLUIDS. VOIDING IN URINAL. DIARRHEA SUBSIDED FOR THE TIME BEING. TELE REOPRTED ONCE AT BEGINNING OF SHIFT A 5 BEAT RUN OF V TACH. MEDICATED WITH ATARAX BEGINNING OF SHIFT, PT HAS TROUBLE SLEEPING BUT FELL ASLEEP AOUND MN.
[2023-08-02 05:46] LABS: BASOPHILS ABSOLUTE AUTO 0.02 K/mm3 (0.00-0.23); BASOPHILS PERCENT AUTO 0 % (0-2); EOSINOPHILS PERCENT AUTO 0 % (0-6); Hematocrit 40.3 % (37.0-53.0); Hemoglobin 13.9 g/dL (13.5-17.5); IMMATURE GRAN ABSOLUTE AUTO 0.16 K/mm3 (0.00-0.10); IMMATURE GRAN PERCENT AUTO 1 % (0-1); LYMPHOCYTES PERCENT AUTO 5 % (21-46); MONOCYTES ABSOLUTE AUTO 0.97 K/mm3 (0.16-1.47); MONOCYTES PERCENT AUTO 6 % (4-13); Mean Corpuscular HGB 33.8 pg (26.0-34.0); Mean Corpuscular HGB Conc 34.5 g/dL (31.5-36.5); Mean Corpuscular Volume 98 fL (80-100); Mean Platelet Volume 10.2 fL (9.1-12.4); NEUTROPHILS PERCENT AUTO 88 % (41-73); Platelet Count 266 K/mm3 (150-400); RDW Coefficient Variation 14.1 % (11.7-14.2); RDW Standard Deviation 51.3 fL (35.1-46.3); Red Blood Cell Count 4.11 M/mm3 (4.30-5.90); White Blood Cell Count 15.25 K/mm3 (4.00-11.30)
[2023-08-02 06:17] LABS: Albumin, Blood 2.1 g/dL (3.4-5.0); Albumin/Globulin Ratio 0.6 (0.8-1.8); Bilirubin, Total 0.4 mg/dL (0.1-1.0); Bun/Creatinine Ratio 38.4 (12.0-20.0); Calcium, Blood 8.2 mg/dL (8.5-10.1); Creatinine, Blood 0.81 mg/dL (0.60-1.20); Globulin, Blood 3.7 g/dL (2.2-4.0); Potassium, Blood 3.6 mmol/L (3.5-5.5); Total Protein, Blood 5.8 g/dL (6.4-8.2)
[2023-08-02 07:27] VITALS: BP 124/78
[2023-08-02 15:38] VITALS: BP 128/86
--- NOTE | 2023-08-02 18:04 | NUR ---
SHIFT SUMMARY: PT A&O X4. PT PLEASANT AND COOPERATIVE WITH CARE. PT ABLE TO TRANSFER/WALK INDEPENDENTLY IN ROOM. NO C/O PAIN, N/V, OR DIARRHEA. PT RECEIVED ATARAX THIS SHIFT WITH MORNING MEDS AND WANTS TO BE ON Q12 SCHEDULE FOR MEDICATION. EDUCATED PT THAT MEDICATION IS PRN AND WILL NEED TO BE ASKED FOR WHEN NEEDED. PT C/O BLOATING. PT STATES HE IS NOT TAKING CORRECT MEDICATIONS AND NEEDS TO BE TAKING INCREASED DIURETICS ALONG WITH METAMUCIL. EXPLAINED TO PT THAT HE WILL NEED TO TALK TO HOSPITALIST IN AM REGARDING MEDICATIONS AND NEEDS OF ADDITIONAL MEDICATIONS. METAMUCIL ORDERED AND GIVEN PER PT REQUEST. INSULIN INCREASED TO REGULAR MEDIUM SLIDING SCALE. PT HAD 418 BLOOD SUGAR FOR LUNCH. PT TITRATED DOWN TO 4L MAINTAINING SATS >92%. NO CALLS FROM TELE THIS SHIFT. MUCINEX ADDED AND GIVEN WITH MORNING MEDS PER EMAR. PT TOLERATING IV ABX. CALL LIGHT IN REACH. BED IN LOWEST POSITION. WILL CONTINUE TO MONITOR.
[2023-08-02 20:01] VITALS: BP 126/72
[2023-08-02 22:29] VITALS: BP 114/61
--- NOTE | 2023-08-02 23:29 | NUR ---
08/02/232229 Patient is complaining of chest pain that is tightening and releasing. Pt does have a past history of CABG, [place], Prinzmetal angina and is asking for nitro. VS taken HR 75, BP 114/61. O2 sat 91% on 4 liters. Mr. Rodarte hospitalist was notified, order received for SL nitro. 1 dose of 0.4 mg given for chest discomfort of 9/10. In 5 minutes pain is easing, 7/10. Respiratory therapy was at bedside for rounds, O2 sat found to be at that time high 80's. O2 increased to 6 L. Patient was repositioned in bed, HOB up. Pt feels like pain is now more on the right side where his PNA is centered. Pt is anxious. Update given to primary nurse. Will continue to monitor and medicate as needed.
[2023-08-03 01:54] VITALS: BP 133/82
--- NOTE | 2023-08-03 04:05 | NUR ---
END OF SHIFT SUMMARY PT A&O x4. VSS, AFEBRILE. PT PLEASANT AND COOPERATIVE WITH CARE PROVIDED. PT 93% OXYGEN SAT ON 6L O2 VIA NC. PT C/O CHEST PAIN, PRN NITROGLYCERIN ADMINISTERED WHICH WAS EFFECTIVE. PT'S PAIN WAS LOCATED AT R SIDE OF CHEST. PRN TRAMADOL GIVEN AND HELPED ALLEVIATE DISCOMFORT. PT MAY BE PAINFUL FROM PNEUMONIA. PT ON TELEMETRY, AT 0332 PT HAD A 11 BEAT RUN OF V-TACH. PT DENIED ANY CHEST PAIN, NO DIZZINESS/LIGHTHEADEDNESS, NO JIMÉNEZ, BUT HAD SOME SHORTNESS OF BREATH. PT REQUESTED ATARAX EARLY ON IN THE SHIFT. PT ABLE TO MAKE NEEDS KNOWN, CALL LIGHT WITHIN REACH, WCTM.
[2023-08-03 04:24] LABS: BASOPHILS ABSOLUTE AUTO 0.01 K/mm3 (0.00-0.23); BASOPHILS PERCENT AUTO 0 % (0-2); EOSINOPHILS PERCENT AUTO 0 % (0-6); Hematocrit 40.5 % (37.0-53.0); Hemoglobin 13.9 g/dL (13.5-17.5); IMMATURE GRAN ABSOLUTE AUTO 0.11 K/mm3 (0.00-0.10); IMMATURE GRAN PERCENT AUTO 1 % (0-1); LYMPHOCYTES ABSOLUTE AUTO 0.68 K/mm3 (0.84-5.20); LYMPHOCYTES PERCENT AUTO 5 % (21-46); MONOCYTES ABSOLUTE AUTO 0.91 K/mm3 (0.16-1.47); MONOCYTES PERCENT AUTO 7 % (4-13); Mean Corpuscular HGB 33.9 pg (26.0-34.0); Mean Corpuscular HGB Conc 34.3 g/dL (31.5-36.5); Mean Corpuscular Volume 99 fL (80-100); Mean Platelet Volume 9.9 fL (9.1-12.4); NEUTROPHILS ABSOLUTE AUTO 11.15 K/mm3 (1.96-9.15); NEUTROPHILS PERCENT AUTO 87 % (41-73); Platelet Count 298 K/mm3 (150-400); RDW Coefficient Variation 14.1 % (11.7-14.2); RDW Standard Deviation 52.1 fL (35.1-46.3); White Blood Cell Count 12.86 K/mm3 (4.00-11.30)
[2023-08-03 04:48] LABS: Vancomycin, Trough 14.7 ug/mL (5.0-10.0)
[2023-08-03 04:58] LABS: Albumin, Blood 2.2 g/dL (3.4-5.0); Albumin/Globulin Ratio 0.6 (0.8-1.8); Bilirubin, Total 0.5 mg/dL (0.1-1.0); Bun/Creatinine Ratio 29.3 (12.0-20.0); Calcium, Blood 8.1 mg/dL (8.5-10.1); Creatinine, Blood 0.85 mg/dL (0.60-1.20); Globulin, Blood 3.6 g/dL (2.2-4.0); Total Protein, Blood 5.8 g/dL (6.4-8.2)
[2023-08-03 15:54] VITALS: BP 127/77
--- NOTE | 2023-08-03 17:25 | NUR ---
SUMMARY- PT HAS BEEN IRRITABLE THIS SHIFT. AAOX4. INDEPENDENT IN ROOM. PT ON 6 L O2. BLOODY/BROWN SPUTUM NOTED.
[2023-08-03 20:23] VITALS: BP 134/80
[2023-08-04 04:29] VITALS: BP 124/79
[2023-08-04 04:47] LABS: BASOPHILS ABSOLUTE AUTO 0.01 K/mm3 (0.00-0.23); BASOPHILS PERCENT AUTO 0 % (0-2); EOSINOPHILS PERCENT AUTO 0 % (0-6); Hematocrit 40.9 % (37.0-53.0); IMMATURE GRAN ABSOLUTE AUTO 0.13 K/mm3 (0.00-0.10); IMMATURE GRAN PERCENT AUTO 1 % (0-1); LYMPHOCYTES ABSOLUTE AUTO 0.84 K/mm3 (0.84-5.20); LYMPHOCYTES PERCENT AUTO 6 % (21-46); MONOCYTES ABSOLUTE AUTO 0.85 K/mm3 (0.16-1.47); MONOCYTES PERCENT AUTO 6 % (4-13); Mean Corpuscular HGB 33.7 pg (26.0-34.0); Mean Corpuscular HGB Conc 34.2 g/dL (31.5-36.5); Mean Corpuscular Volume 99 fL (80-100); Mean Platelet Volume 9.8 fL (9.1-12.4); NEUTROPHILS ABSOLUTE AUTO 11.67 K/mm3 (1.96-9.15); NEUTROPHILS PERCENT AUTO 86 % (41-73); Platelet Count 349 K/mm3 (150-400); RDW Coefficient Variation 14.2 % (11.7-14.2); RDW Standard Deviation 51.9 fL (35.1-46.3); Red Blood Cell Count 4.15 M/mm3 (4.30-5.90)
[2023-08-04 05:05] LABS: Bun/Creatinine Ratio 23.7 (12.0-20.0); Calcium, Blood 8.1 mg/dL (8.5-10.1); Creatinine, Blood 0.8 mg/dL (0.60-1.20); Potassium, Blood 3.9 mmol/L (3.5-5.5)
[2023-08-04 05:07] LABS: Vancomycin, Trough 14.1 ug/mL (5.0-10.0)
--- NOTE | 2023-08-04 05:43 | NUR ---
END OF SHIFT SUMMARY PT A&O x4. VSS, AFEBRILE. PT RECEIVING SCHEDULED BREATHING TREATMENTS WHEN AWAKE. PT SLEPT ON AND OFF THROUGHOUT THE NIGHT. IV ANTIBIOTICS VANCOMYCIN AND ZOSYN ADMINISTERED. PT'S WBC THIS MORNING WAS 13.5. 2123: PT ON TELEMETRY, HAD A RUN OF 7 BEATS IN V-TACH, PT ASYMPTOMATIC. 0330: FORGING ENGINEER DETECTED A TEMPORARY BUNDLE BRANCH BLOCK THAT LASTED [address] GARCIA WAS NOTIFIED OF THESE EVENTS THAT OCCURRED OVERNIGHT. PLAN IS TO REPEAT ECHOCARDIOGRAM. CALL LIGHT WITHIN REACH, WCTM.
[2023-08-04 06:10] LABS: Magnesium, Blood 2.3 mg/dL (1.6-2.4)
[2023-08-04 07:43] VITALS: BP 131/79
[2023-08-04 15:28] VITALS: BP 125/83
--- NOTE | 2023-08-04 17:44 | NUR ---
SHIFT SUMMARY: PT A&O X4. PT PLEASANT AND COOPERATIVE WITH CARE. PT CURRENTLY ON 5L 02 STATING NO SOB AT THIS TIME. 02 RECHECKED WITH A SAT OF 94% ON 5L. IV IN RAC STARTED LEAKING PRIOR TO 1700 ABX AND STERIOD. NEW IV ATTEMPTED BY EXPORT DOCUMENTS CLERK BUT UNSUCCESSFUL. WILL ATTEMPT AGAIN PRIOR TO SHIFT CHANGE. PT HAD 9 BEAT VTACH LATE AFTERNOON. PT ASYMPTOMATIC. CALL LIGHT IN REACH. BED IN LOWEST POSITION. WILL CONTINUE TO MONITOR.
[2023-08-04 19:58] VITALS: BP 139/82
[2023-08-05 02:34] VITALS: BP 120/65
[2023-08-05 05:35] LABS: BASOPHILS ABSOLUTE AUTO 0.02 K/mm3 (0.00-0.23); BASOPHILS PERCENT AUTO 0 % (0-2); EOSINOPHILS PERCENT AUTO 0 % (0-6); Hematocrit 41.2 % (37.0-53.0); Hemoglobin 14.1 g/dL (13.5-17.5); IMMATURE GRAN ABSOLUTE AUTO 0.29 K/mm3 (0.00-0.10); IMMATURE GRAN PERCENT AUTO 2 % (0-1); LYMPHOCYTES ABSOLUTE AUTO 0.83 K/mm3 (0.84-5.20); LYMPHOCYTES PERCENT AUTO 5 % (21-46); MONOCYTES ABSOLUTE AUTO 0.88 K/mm3 (0.16-1.47); MONOCYTES PERCENT AUTO 6 % (4-13); Mean Corpuscular HGB 33.8 pg (26.0-34.0); Mean Corpuscular HGB Conc 34.2 g/dL (31.5-36.5); Mean Corpuscular Volume 99 fL (80-100); Mean Platelet Volume 9.9 fL (9.1-12.4); NEUTROPHILS ABSOLUTE AUTO 13.51 K/mm3 (1.96-9.15); NEUTROPHILS PERCENT AUTO 87 % (41-73); Platelet Count 376 K/mm3 (150-400); RDW Coefficient Variation 13.9 % (11.7-14.2); RDW Standard Deviation 51.2 fL (35.1-46.3); Red Blood Cell Count 4.17 M/mm3 (4.30-5.90); White Blood Cell Count 15.53 K/mm3 (4.00-11.30)
[2023-08-05 06:04] LABS: Albumin, Blood 2.4 g/dL (3.4-5.0); Albumin/Globulin Ratio 0.6 (0.8-1.8); Bilirubin, Total 0.6 mg/dL (0.1-1.0); Bun/Creatinine Ratio 21.1 (12.0-20.0); Calcium, Blood 7.9 mg/dL (8.5-10.1); Creatinine, Blood 0.76 mg/dL (0.60-1.20); Globulin, Blood 3.7 g/dL (2.2-4.0); Potassium, Blood 3.9 mmol/L (3.5-5.5); Total Protein, Blood 6.1 g/dL (6.4-8.2)
[2023-08-05] MEDS ORDERED: LEVO750 PO (14:11)
[2023-08-05] MEDS ORDERED: PRED20 (14:12)
--- NOTE | 2023-08-05 15:56 | NUR ---
NOTE/DISCHARGE SUMMARY: PATIENT IS A&OX4. ANXIOUS AT TIMES. PLEASANT AND COOPERATIVE c CARE. USES CALL LIGHT APPROPRIATELY AND ABLE TO MAKE NEEDS KNOWN. PATIENT RECEIVED IV ABX AND PO MEDS PER EMAR. RECEIVED PRN ANXIETY MEDS c GOOD EFFECT. PATIENT DENIES CP/PRESSURE, SOB, N/V AND GENERALIZED PAIN. ON TELE, SR HR IN THE HIGH 70'S BPM. PATIENT IS INDEPENDENT IN ROOM. PATIENT HAD HOME O2 EVAL THIS AM. PER RT PATIENT NEEDING 3L OF O2 c AMBULATION. PORTABLE O2 DELIVERED IN ROOM BY [facility] AT AROUND 1545. IV TO R FOREARM DC'D. VITAL SIGNS REVIEWED. PATIENT DISCHARGE HOME. DISCHARGE INSTRUCTIONS PACKET GIVEN TO PATIENT. EDUCATE PATIENT REGARDING ADMITTING DX OF PNEUMONIA, S/S, TX, O2, NEW PRESCRIBED MEDS TO HOME. PATIENT VERBALIZED UNDERSTANDING AMD NO FURTHER QUESTIONS. RX WAS FAXED TO PATIENT [facility] ([facility] ALL PATIENT PERSONAL BELONGINGS WERE SENT HOME c THE PATIENT. PATIENT LEFT THE ROOM AT AROUND 1555. PATIENT WAS TRANSPORTED VIA WHEELCHAIR BY [facility] STAFF IVAN TO PATIENT ENTRANCE.
== END 2023-08-05 15:50 | disposition home or self-care (01) | DRG 871 ==
LOC: ER 00:57 → MEDS 04:52 → ENPENDDIS 08-05 12:37 → MEDS 08-05 15:50
PROVIDERS: Emergency Medicine; Hospitalist; Internal Medicine; ADMIT Internal Medicine
DX: A41.9 Sepsis, unspecified organism (principal); J18.9 Pneumonia, unspecified organism; J96.01 Acute respiratory failure with hypoxia; J44.0 Chronic obstructive pulmonary disease with (acute) lower respiratory infection; J44.1 Chronic obstructive pulmonary disease with (acute) exacerbation; E11.65 Type 2 diabetes mellitus with hyperglycemia; Z20.822 Contact with and (suspected) exposure to COVID-19; F17.210 Nicotine dependence, cigarettes, uncomplicated; I10 Essential (primary) hypertension; F32.A Depression, unspecified; Z98.890 Other specified postprocedural states; Z79.2 Long term (current) use of antibiotics; Z79.84 Long term (current) use of oral hypoglycemic drugs; Z79.899 Other long term (current) drug therapy; Z79.02 Long term (current) use of antithrombotics/antiplatelets; Z86.79 Personal history of other diseases of the circulatory system
CPT/HCPCS: 0241U; 36415; 71046; 80048; 80053; 80069; 80202; 82803; 82947; 83605; 83735; 83880; 84145; 84484; 85025; 85027; 87040; 93005; 93010; 94640; 94664; 94760; 94761; 96361; 96365; 96375; 99285-25; A9270; J0696; J1815; J1940; J2543; J2930; J3370; J7030; J7050; J7626

== ENCOUNTER → 2024-10-11 | Outpatient (CLI) | payer MEDICARE, OTHER ==
[~2024-10-11] MED LIST changes: +ALBU8HFA2 INH; +AMLO10 PO; +BENAZEPRIL HCL40 M1 PO; +BUSP5 PO; +JARDIANCE10 MG PO; +LEVO750 PO; +PRED20; +TAMS.4ER PO
== END ==
LOC: LAB 17:58 → LAB SHORT 17:58
DX: R25.2 Cramp and spasm (principal)
CPT/HCPCS: 83735

== ENCOUNTER → 2025-03-12 | Outpatient (CLI) | payer MEDICARE, OTHER ==
[2025-03-12 14:37] LABS: BASOPHILS PERCENT AUTO 1 % (0-2); EOSINOPHILS ABSOLUTE AUTO 0.61 K/mm3 (0.00-0.68); EOSINOPHILS PERCENT AUTO 4 % (0-6); Hemoglobin 18.7 g/dL (13.5-17.5); IMMATURE GRAN ABSOLUTE AUTO 0.06 K/mm3 (0.00-0.10); IMMATURE GRAN PERCENT AUTO 0 % (0-1); LYMPHOCYTES ABSOLUTE AUTO 2.93 K/mm3 (0.84-5.20); LYMPHOCYTES PERCENT AUTO 20 % (21-46); MONOCYTES ABSOLUTE AUTO 1.71 K/mm3 (0.16-1.47); MONOCYTES PERCENT AUTO 12 % (4-13); Mean Corpuscular HGB 32.6 pg (26.0-34.0); Mean Corpuscular HGB Conc 33.4 g/dL (31.5-36.5); Mean Corpuscular Volume 98 fL (80-100); Mean Platelet Volume 9.2 fL (9.1-12.4); NEUTROPHILS ABSOLUTE AUTO 9.41 K/mm3 (1.96-9.15); NEUTROPHILS PERCENT AUTO 64 % (41-73); Platelet Count 258 K/mm3 (150-400); RDW Standard Deviation 51.1 fL (35.1-46.3); Red Blood Cell Count 5.74 M/mm3 (4.30-5.90); White Blood Cell Count 14.82 K/mm3 (4.00-11.30)
[2025-03-12 16:53] LABS: Albumin, Blood 3.9 g/dL (3.4-5.0); Albumin/Globulin Ratio 1.2 (0.8-1.8); Bilirubin, Total 0.4 mg/dL (0.1-1.0); Bun/Creatinine Ratio 19.4 (12.0-20.0); Calcium, Blood 9.1 mg/dL (8.5-10.1); Creatinine, Blood 1.08 mg/dL (0.60-1.20); Globulin, Blood 3.2 g/dL (2.2-4.0); Potassium, Blood 4.2 mmol/L (3.5-5.5); Total Protein, Blood 7.1 g/dL (6.4-8.2)
== END ==
LOC: LAB 13:24 → LAB SHORT 13:24
PROVIDERS: Hospitalist
DX: L73.9 Follicular disorder, unspecified (principal); I13.0 Hypertensive heart and chronic kidney disease with heart failure and stage 1 through stage 4 chronic kidney disease, or unspecified chronic kidney disease; R73.9 Hyperglycemia, unspecified
CPT/HCPCS: 80053; 83036; 85025; 85651

== ENCOUNTER → 2025-04-09 | Outpatient (CLI) | payer MEDICARE, OTHER ==
[2025-04-09 18:59] LABS: Hemoglobin 18.5 g/dL (13.5-17.5); Mean Corpuscular HGB 33.1 pg (26.0-34.0); Mean Corpuscular HGB Conc 33.4 g/dL (31.5-36.5); Mean Corpuscular Volume 99 fL (80-100); Mean Platelet Volume 9.6 fL (9.1-12.4); Platelet Count 242 K/mm3 (150-400); RDW Coefficient Variation 13.8 % (11.7-14.2); RDW Standard Deviation 50.7 fL (35.1-46.3); Red Blood Cell Count 5.59 M/mm3 (4.30-5.90); White Blood Cell Count 12.15 K/mm3 (4.00-11.30)
[2025-04-09 19:10] LABS: Hematocrit 55.4 % (37.0-53.0)
[2025-04-09 19:47] LABS: BASOPHILS ABSOLUTE MAN 0.12 K/mm3 (0.00-0.23); BASOPHILS PERCENT MAN 1 % (0-2); EOSINOPHILS ABSOLUTE MAN 0.72 K/mm3 (0.00-0.68); EOSINOPHILS PERCENT MAN 6 % (0-6); LYMPHOCYTES PERCENT MAN 28 % (21-46); MONOCYTES ABSOLUTE MAN 1.33 K/mm3 (0.16-1.47); MONOCYTES PERCENT MAN 11 % (4-13); NEUTROPHILS ABSOLUTE MAN 6.56 K/mm3 (1.96-9.15); SEG NEUTROPHILS PERCENT MAN 54 % (41-73); TOTAL CELLS COUNTED 100
== END ==
LOC: LAB 16:50 → LAB SHORT 16:50
PROVIDERS: Internal Medicine Hematology & Oncology
DX: D75.1 Secondary polycythemia (principal)
CPT/HCPCS: 85007; 85027